=== PATIENT | female | born 1945 | race Caucasian/White ===

== ENCOUNTER 2021-06-19 14:31 | Outpatient (AMBR) | payer MEDICARE, BC, SELFPAY ==
--- NOTE | 2021-05-23 14:21 | PTNOTE_ITS ---
PT OP Initial Eval Patient Information Visit Reasons: shoulder pain Medical Diagnosis: s/p L prox humerus FX Treatment Dx #1: L shoulder pain Treatment Dx #2: L shoulder dec ROM Start of Care: 05/23/21 Date of Onset: 02/22/21 Initial Assessment Subjective Pt is 75 yr old female who fell in her yard on 02/22 and went in to the ED on 02/23 with imaging that showed L proximal humerus FX. She had a sling for a couple weeks and is not wearing it now and is moving it at home. She is opposed to surgery. PMH: HTN, allergies, cardiac valve replacement Imaging: MRI of L shoulder in EMR Pt goal: less pain in shoulder Objective L shoulder AROM: PROM: FF: 20 deg 60 deg Abd: 40 deg 70 deg Erot: 40 deg 45 deg Strength: NT but estimated to be 3-/5 in all planes Drop arm: unable to hold isometrically Assessment Pt presents with very limited L shoulder A/PROM limited in capsular pattern s/p proximal humerus FX. ROM is limited by pain and she uses the R hand to move the L UE. Pt requires skilled therapy in order to improve ROM and strength and has fair rehab potential. Pt may benefit from further diagnostic imaging to check the union of FX site. 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 Ind with HEP 2. Improved AROM to at least 80 deg FF and abduction and 50 deg Erot 3. Pt will be able to reach behind back independently to fasten bra Treatment Plan 90 day POC in order to complete visits. Pt requires skilled therapy in order to increase strength, decrease pain and address aforementioned impairments. Rx may consist of Therex, Manual therapy, Neuromuscular re-education. Modalities as indicated-moist heat packs, ice packs, mechanical traction, estim Frequency and Duration 2x a week for 6 weeks Certification Dates: 05/23/21 to 08/22/21 Office Procedures PT Treatments PT Date of Service: 05/23/21 OP PT Eval Mod Complex 30 minutes: Yes
--- NOTE | 2021-05-25 14:42 | PT.ODAYNRPT ---
PT Outpatient Daily Note Date of Service: 05/25/2021 OP Daily Note Visit Reasons: shoulder pain Outpatient Physical Therapy Treatment Date: 05/25/21 Subjective: Pt reports she went to the doctors and they gave her a shot for pain. Pain level 3/10 today. Objective: See flow chart for therex. Assessment: Pt presents to therapy ambulating w/ SPC. TTP anterior L shoulder. Mod tissue irritability to anterior L shoulder. Pt tolerated TENS and HMP well w/ increased ROM. Pt tolerated therex fair w/ mod complaints of pain when pt does FF or abduction movements. Plan: Cont POC per PT. Length of Time (minutes) of Treatment: 30 Minutes Office Procedures PT Treatments PT Date of Service: 05/25/21 Therapeutic Exercise 30 minutes: Yes PT Treatments PT Date of Service: 05/23/21 OP PT Eval Mod Complex 30 minutes: Yes
--- NOTE | 2021-05-29 15:42 | PT.ODAYNRPT ---
PT Outpatient Daily Note Date of Service: 05/29/2021 OP Daily Note Visit Reasons: shoulder pain Outpatient Physical Therapy Treatment Date: 05/29/21 Subjective: pt states she has pain and is limited to certain motions due to pain. Objective: see flow sheet. Assessment: pt attempted the wand exercises in supine and standing and not able to do more than 5 reps due to pain. she stopped and did not want to continue. she attempted elbow flexion with 1# per her request in which she was only able to 1 due to pain. she is hesitant due to pain with all ther ex. encouraged her to attempt shoulder iso's in which she did but has poor form due to compensation of pain and weakness. Plan: continue POC per PT. Length of Time (minutes) of Treatment: 30 Minutes Office Procedures PT Treatments PT Date of Service: 05/25/21 Therapeutic Exercise 30 minutes: Yes PT Treatments PT Date of Service: 05/23/21 OP PT Eval Mod Complex 30 minutes: Yes PT Treatments PT Date of Service: 05/29/21 Therapeutic Exercise 30 minutes: Yes
--- NOTE | 2021-05-31 15:11 | PT.ODAYNRPT ---
PT Outpatient Daily Note Date of Service: 05/31/21 OP Daily Note Visit Reasons: shoulder pain Outpatient Physical Therapy Treatment Date: 05/31/21 Subjective: Continued pain of L shoulder but therapy is helping move it more Objective: See F/S for therex TENS and MHP L shoulder x10 Assessment: Good response to modalities to reduce pain but high tissue irritability with initial AAROM therex. Plan: Continue per POC Length of Time (minutes) of Treatment: 30 Minutes Office Procedures PT Treatments PT Date of Service: 05/25/21 Therapeutic Exercise 30 minutes: Yes PT Treatments PT Date of Service: 05/31/21 OP Electrical Stimul Unattended: Yes Therapeutic Exercise 15 minutes: Yes PT Treatments PT Date of Service: 05/23/21 OP PT Eval Mod Complex 30 minutes: Yes PT Treatments PT Date of Service: 05/29/21 Therapeutic Exercise 30 minutes: Yes
--- NOTE | 2021-06-19 15:13 | PT.ODS1RPT ---
PT OP Progress/Discharge Note Date of Service: 06/19/21 Progress Note/DC Note Progress Note/Discharge Note: Progress Note Patient Information Visit Reasons: shoulder pain Service Continue Service or Discharge: Continue Service Status Subjective: Pt fell a couple of weeks ago at home onto her knee and was cleared by provider to return to therapy. Overall therapy has helped lessen R shoulder pain Objective: See f/S for therex R shoulder ArOM: FF: 45 deg abd: 45 deg Assessment: Min to mod pain with therex consistent with advanced OA.Very limited AROM in all planes of motion. Plan: Continue per POC Office Procedures PT Treatments PT Date of Service: 05/25/21 Therapeutic Exercise 30 minutes: Yes PT Treatments PT Date of Service: 05/31/21 OP Electrical Stimul Unattended: Yes Therapeutic Exercise 15 minutes: Yes PT Treatments PT Date of Service: 06/19/21 Therapeutic Exercise 30 minutes: Yes PT Treatments PT Date of Service: 05/23/21 OP PT Eval Mod Complex 30 minutes: Yes PT Treatments PT Date of Service: 05/29/21 Therapeutic Exercise 30 minutes: Yes
== END 2021-06-20 23:59 | disposition home or self-care (01) ==
PROVIDERS: PCP Family Medicine; Referring Provider Family Medicine; Visit Provider Orthopaedic Surgery
DX: M25.512 Pain in left shoulder (principal); I10 Essential (primary) hypertension
CPT/HCPCS: 97014; 97110; 97162; G0283

== ENCOUNTER 2021-07-03 13:29 | Outpatient (AMBR) | payer MEDICARE, BC, SELFPAY ==
--- NOTE | 2021-06-21 17:45 | PT.ODAYNRPT ---
PT Outpatient Daily Note Date of Service: 06/21/21 OP Daily Note Visit Reasons: shoulder pain Outpatient Physical Therapy Treatment Date: 06/21/21 Subjective: The shoulder always feels better after therapy but pain returns after. 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 She has less pain when the shoulder is warm and she eases into the therex up to shoulder height slowly. Plan: Continue per POC Length of Time (minutes) of Treatment: 30 Minutes Office Procedures PT Treatments PT Date of Service: 06/21/21 OP Electrical Stimul Unattended: Yes Therapeutic Exercise 15 minutes: Yes
--- NOTE | 2021-06-26 15:41 | PT.ODAYNRPT ---
PT Outpatient Daily Note Date of Service: 06/26/21 OP Daily Note Visit Reasons: shoulder pain Outpatient Physical Therapy Treatment Date: 06/26/21 Subjective: The shoulder always feels better after therapy and provider is pleased with AROM progress so far. 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 She has less pain when the shoulder is warm and she eases into the therex up to shoulder height slowly. Plan: Continue per POC Length of Time (minutes) of Treatment: 30 Minutes Office Procedures PT Treatments PT Date of Service: 06/26/21 OP Electrical Stimul Unattended: Yes Therapeutic Exercise 15 minutes: Yes PT Treatments PT Date of Service: 06/21/21 OP Electrical Stimul Unattended: Yes Therapeutic Exercise 15 minutes: Yes
--- NOTE | 2021-07-03 18:56 | PT.ODAYNRPT ---
PT Outpatient Daily Note Date of Service: 07/03/21 OP Daily Note Visit Reasons: shoulder pain Outpatient Physical Therapy Treatment Date: 07/03/21 Subjective: The shoulder always feels better after therapy and provider is pleased with AROM progress so far. 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 She has less pain when the shoulder is warm and she eases into the therex up to shoulder height slowly. Plan: Continue per POC Length of Time (minutes) of Treatment: 30 Minutes Office Procedures PT Treatments PT Date of Service: 06/26/21 OP Electrical Stimul Unattended: Yes Therapeutic Exercise 15 minutes: Yes PT Treatments PT Date of Service: 07/03/21 OP Electrical Stimul Unattended: Yes Therapeutic Exercise 15 minutes: Yes PT Treatments PT Date of Service: 06/21/21 OP Electrical Stimul Unattended: Yes Therapeutic Exercise 15 minutes: Yes
--- NOTE | 2021-10-25 09:18 | PT.ODS1RPT ---
PT OP Progress/Discharge Note Date of Service: 10/25/21 Progress Note/DC Note Progress Note/Discharge Note: DC Note Patient Information Visit Reasons: shoulder pain Service Continue Service or Discharge: Discharge Discharge Date: 10/25/21 Status Assessment: Pt attended the initial evaluation and 7 Rx visits and never returned to be reassessed or called to schedule a follow-up appointment within the past 30 days. Pt?s attendance is not consistent enough to make progress with goals. Pt will be D/C'd according to non-compliance with attendance policy. Plan: D/C Office Procedures PT Treatments PT Date of Service: 06/26/21 OP Electrical Stimul Unattended: Yes Therapeutic Exercise 15 minutes: Yes PT Treatments PT Date of Service: 07/03/21 OP Electrical Stimul Unattended: Yes Therapeutic Exercise 15 minutes: Yes PT Treatments PT Date of Service: 06/21/21 OP Electrical Stimul Unattended: Yes Therapeutic Exercise 15 minutes: Yes
== END 2021-07-21 23:59 | disposition home or self-care (01) ==
PROVIDERS: PCP Orthopaedic Surgery; Referring Provider Orthopaedic Surgery; Visit Provider Orthopaedic Surgery
DX: S42.202D Unspecified fracture of upper end of left humerus, subsequent encounter for fracture with routine healing (principal); M25.512 Pain in left shoulder; I10 Essential (primary) hypertension; W19.XXXD Unspecified fall, subsequent encounter
CPT/HCPCS: 97014; 97110; G0283